=== PATIENT | female | born 1950 | race Caucasian/White ===

== ENCOUNTER 2017-02-24 16:36 | Emergency (ER) | payer MEDICARE, OTHER, SELFPAY ==
[~2017-02-24] VITALS: Ht 170.2 cm; Wt 102.0 kg
[2017-02-24] MEDS ORDERED: SODIUM CHLORIDE 0.9% 1,000 ML IV ONE (16:55)
[2017-02-24] MEDS ORDERED: LIOT5TAB6 PO (16:56)
[2017-02-24] MEDS ORDERED: RANI75TA12 PO (16:56)
[2017-02-24] MEDS ORDERED: SODIUM CHLORIDE 0.9% 1,000ML IVBOLUS ONE (17:00)
[2017-02-24] MEDS ORDERED: SODIUM CHLORIDE FLUSH 10ML SYR IVF ONE (17:00)
[2017-02-24] MEDS ORDERED: LORazepam 2 MG/ML, 1ML IVPush ONE (17:00)
[2017-02-24] MEDS ORDERED: LORazepam 2 MG/ML, 1ML ONE (17:04)
[2017-02-24 17:23] LABS: BLOOD UREA NITROGEN 16 mg/dL (7-18)
[2017-02-24 17:30] LABS: IS PT STATUS REG ER OR PRE ER? YES
[2017-02-24 17:40] LABS: ASPARTATE AMINO TRANSFERASE 19 U/L (15-37)
[2017-02-24 18:05] LABS: DAU SCREEN DISCLAIMER
[2017-02-24 19:00] VITALS: BP 137/74
== END 2017-02-24 19:15 ==
LOC: ED 19:09
DX: R00.2 Palpitations (principal)
CPT/HCPCS: 36415; 80053; 80307; 83735; 84436; 84443; 84481; 84484; 85025; 85610; 93005; 96361; 96374; 99285; J2060; J7030